=== PATIENT | male | born 1970 | race Caucasian/White ===

== ENCOUNTER 2020-03-08 10:09 | Inpatient (IN) | payer OTHER ==
--- NOTE | 2020-03-08 10:57 | BHS.RME ---
Substance Use & Tx History - Substance Use History Alcohol Substance amount: 1 pint vodka Frequency of use: Daily Substance route: Oral Date of Last Use: 03/07/20 (12pm) Nicotine Substance amount: 5 ciggs Frequency of use: Daily Substance route: Smoking Date of Last Use: 03/08/20 Physical/Psych/Mental Status - Behavior General Behavior: Increased activity (restlessness, agitation) Eye Contact: Normal - Cooperativeness Cooperativeness: Cooperative - Thinking Thought Processes: Tight, Logical, Goal Directed - Physical Health Problems Is patient presently having any pain?: No Does patient presently have any injuries (include location): No Does patient currently have a fever: No Is patient : No CIWA Nausea/Vomitin-No Nausea/No Vomiting Muscle Tremors: 3 Anxiety: 3 Agitation: 3 Paroxysmal Sweats: 4-Forehead w/Sweat Beads Orientation: 1-Uncertain about Date Tacttile Disturbances: 0-None Auditory Disturbances: 0-None Visual Disturbances: 1-Very Mild Sensitivity Headache: 1-Very Mild CIWA-Ar Total Score: 16
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
[2020-03-08] MEDS ORDERED: NICOTINE POLACRILEX 2 MG GUM BUC PRN (12:12)
[2020-03-08] MEDS ORDERED: MENTHOL/PHENOL 1 EACH UD MM PRN (12:12)
[2020-03-08] MEDS ORDERED: MAG HYDROX/AL HYDROX/SIMETH 30 ML UNIT-DOSE CUP PO PRN (12:12)
[2020-03-08] MEDS ORDERED: ACETAMINOPHEN 325 MG TABLET (FP) PO PRN ×2 (12:12)
[2020-03-08] MEDS ORDERED: BISMUTH SUBSALICYLATE 524 MG/30 ML UD PO PRN (12:12)
[2020-03-08] MEDS ORDERED: IBUPROFEN 400 MG TABLET (FP) PO PRN (12:12)
[2020-03-08] MEDS ORDERED: METHOCARBAMOL 500 MG TABLET PO PRN (12:12)
[2020-03-08] MEDS ORDERED: MAGNESIUM CITRATE 300 ML BOTTLE PO PRN (12:12)
[2020-03-08] MEDS ORDERED: MAGNESIUM HYDROX 2400MG/30ML ORAL SUSPENSION 30 ML CUP PO PRN (12:12)
[2020-03-08] MEDS ORDERED: chlordiazePOXIDE HCL 25 MG CAPSULE PO PRN (12:12)
[2020-03-08 12:41] VITALS: BMI 31.8
[2020-03-08] MEDS ORDERED: ONDANSETRON *ODT* 4 MG TABLET SL ONE (13:00)
[2020-03-08] MEDS ORDERED: TUBERCULIN PPD 5 TU/0.1ML VIAL ID ONE (13:35)
[2020-03-08] MEDS: chlordiazePOXIDE HCL 25 MG CAPSULE PO SCH ×3 (13:52→22:12)
[2020-03-08] MEDS: NICOTINE 7 MG/24 HOURS TOPICAL PATCH TD SCH (13:52)
[2020-03-08] MEDS: PRENATAL VITAMINS W/ FOLIC ACID TABLET (FP) PO SCH (13:53)
[2020-03-08] MEDS ORDERED: hydrOXYzine PAMOATE 25 MG CAPSULE (FP) PO SCH (14:00)
[2020-03-08 14:51] LABS: HEMATOCRIT 45.6 % (35.4-49); HEMOGLOBIN 14.8 GM/dL (11.7-16.9); MCH 33.6 pg (25.7-33.7); MCHC 32.5 g/dl (32.0-35.9); MEAN CELL VOLUME 103.3 fl (80-96); MEAN PLT VOLUME 8.2 fl (7.5-11.1); PLATELET COUNT 364 K/MM3 (134-434); RBC 4.41 M/mm3 (4.00-5.60); RDW 21.7 % (11.9-15.9); WHITE BLOOD COUNT 4.6 K/mm3 (4.0-10.0)
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
[2020-03-08 15:08] LABS: ALBUMIN 3.9 g/dl (3.4-5.0); BILIRUBIN,TOTAL 0.4 mg/dL (0.2-1); BLOOD UREA NITROGEN 13.1 mg/dL (7-18); CALCIUM 9.7 mg/dL (8.5-10.1); CREATININE 1.2 mg/dL (0.55-1.3); POTASSIUM 4.4 mmol/L (3.5-5.1); TOT PROT 8.1 g/dl (6.4-8.2)
--- NOTE | 2020-03-08 15:31 | EKG ---
Test Reason : Blood Pressure : / mmHG Vent. Rate : 066 BPM Atrial Rate : 066 BPM P-R Int : 212 ms QRS Dur : 076 ms QT Int : 382 ms P-R-T Axes : 054 051 020 degrees QTc Int : 400 ms SINUS RHYTHM WITH 1ST DEGREE A-V BLOCK NONSPECIFIC ST ABNORMALITY Confirmed by NHI LÓPEZ MD ([id number]) on 03/08/2020 3:31:04 PM Referred By: Confirmed By:NHI LÓPEZ MD
[2020-03-08] MEDS: MELATONIN 5 MG TABLETS PO SCH (22:11)
[2020-03-08] MEDS: THIAMINE HCL 100 MG TABLET (FP) PO SCH (22:11)
[2020-03-08] MEDS: QUEtiapine FUMARATE 200 MG TABLET PO SCH (22:12)
[2020-03-08] MEDS: hydrOXYzine PAMOATE 50 MG CAPSULE (FP) PO PRN (22:12)
[2020-03-09] MEDS ORDERED: METHADONE HCL 5 MG TABLET ONE (05:42)
[2020-03-09] MEDS ORDERED: METHADONE HCL 40 MG DISPERSABLE TABLET ONE (05:42)
[2020-03-09] MEDS ORDERED: METHADONE HCL 10 MG TABLET ONE (05:42)
[2020-03-09] MEDS ORDERED: METHADONE HCL 10 MG TABLET PO SCH (06:00)
[2020-03-09] MEDS: METHADONE 40 MG, METHADONE 10 MG, METHADONE 5 MG PO SCH (06:07)
[2020-03-09] MEDS: chlordiazePOXIDE HCL 25 MG CAPSULE PO SCH ×4 (06:07→22:18)
[2020-03-09] MEDS: PRENATAL VITAMINS W/ FOLIC ACID TABLET (FP) PO SCH (11:07)
[2020-03-09] MEDS: NICOTINE 7 MG/24 HOURS TOPICAL PATCH TD SCH (11:08)
--- NOTE | 2020-03-09 11:08 | PN ---
[facility] CIWA - CIWA Score Nausea/Vomitin-No Nausea/No Vomiting Muscle Tremors: 2 Anxiety: 3 Agitation: 1-Slight > Activity Paroxysmal Sweats: 2 Orientation: 0-Oriented Tacttile Disturbances: 0-None Auditory Disturbances: 2-Mild Harshness/Frighten Visual Disturbances: 2-Mild Sensitivity Headache: 0-None Present CIWA-Ar Total Score: 12 BHS Progress Note (SOAP) Subjective: Complaints of fatigue, irritability, anxiety, tremors and light sensitivity. Objective: 03/09/20 11:07 Vital Signs 03/09/20 07:00 Temperature 97.1 F L Pulse Rate 76 Respiratory 18 Rate Blood Pressure 115/78 O2 Sat by Pulse 96 Oximetry (%) Laboratory Last Values WBC 4.6 K/mm3 (4.0-10.0) 03/08/20 12:00 RBC 4.41 M/mm3 (4.00-5.60) 03/08/20 12:00 Hgb 14.8 GM/dL (11.7-16.9) 03/08/20 12:00 Hct 45.6 % (35.4-49) D 03/08/20 12:00 MCV 103.3 fl (80-96) H 03/08/20 12:00 MCH 33.6 pg (25.7-33.7) D 03/08/20 12:00 MCHC 32.5 g/dl (32.0-35.9) 03/08/20 12:00 RDW 21.7 % (11.9-15.9) H 03/08/20 12:00 Plt Count 364 K/MM3 (134-434) D 03/08/20 12:00 MPV 8.2 fl (7.5-11.1) 03/08/20 12:00 Sodium 135 mmol/L (136-145) L 03/08/20 12:00 Potassium 4.4 mmol/L (3.5-5.1) 03/08/20 12:00 Chloride 102 mmol/L (98-107) 03/08/20 12:00 Carbon Dioxide 24 mmol/L (21-32) 03/08/20 12:00 Anion Gap 9 MMOL/L (8-16) 03/08/20 12:00 BUN 13.1 mg/dL (7-18) 03/08/20 12:00 Creatinine 1.2 mg/dL (0.55-1.3) 03/08/20 12:00 Est GFR (CKD-EPI)AfAm 81.23 03/08/20 12:00 Est GFR (CKD-EPI)NonAf 70.09 03/08/20 12:00 Random Glucose 127 mg/dL (74-106) H 03/08/20 12:00 Calcium 9.7 mg/dL (8.5-10.1) 03/08/20 12:00 Total Bilirubin 0.4 mg/dL (0.2-1) 03/08/20 12:00 AST 42 U/L (15-37) H 03/08/20 12:00 ALT 51 U/L (13-61) 03/08/20 12:00 Alkaline Phosphatase 86 U/L (45-117) 03/08/20 12:00 Total Protein 8.1 g/dl (6.4-8.2) 03/08/20 12:00 Albumin 3.9 g/dl (3.4-5.0) 03/08/20 12:00 Syphilis Serology Non-reactive (NONREACTIVE) 03/08/20 12:00 Labs noted. Assessment: 03/09/20 11:08 Alert and oriented x3, in no acute respiratory distress. Full ROM, ambulatory without assistance. Skin warm to touch. Withdrawal symptoms. Plan: Continue detox protocol.
[2020-03-09] MEDS: MELATONIN 5 MG TABLETS PO SCH (22:16)
[2020-03-09] MEDS: QUEtiapine FUMARATE 200 MG TABLET PO SCH (22:16)
[2020-03-09] MEDS: hydrOXYzine PAMOATE 50 MG CAPSULE (FP) PO PRN (22:18)
[2020-03-09] MEDS: THIAMINE HCL 100 MG TABLET (FP) PO SCH (22:18)
[2020-03-10] MEDS ORDERED: METHADONE HCL 5 MG TABLET ONE (03:53)
[2020-03-10] MEDS ORDERED: METHADONE HCL 40 MG DISPERSABLE TABLET ONE (03:54)
[2020-03-10] MEDS ORDERED: METHADONE HCL 10 MG TABLET ONE (03:54)
[2020-03-10] MEDS: chlordiazePOXIDE HCL 25 MG CAPSULE PO SCH ×4 (05:46→22:11)
[2020-03-10] MEDS: METHADONE 40 MG, METHADONE 10 MG, METHADONE 5 MG PO SCH (05:46)
[2020-03-10] MEDS: NICOTINE 7 MG/24 HOURS TOPICAL PATCH TD SCH (10:55)
[2020-03-10] MEDS: PRENATAL VITAMINS W/ FOLIC ACID TABLET (FP) PO SCH (10:55)
--- NOTE | 2020-03-10 11:23 | PN ---
S CIWA - CIWA Score Nausea/Vomitin-No Nausea/No Vomiting Muscle Tremors: 2 Anxiety: 3 Agitation: 1-Slight > Activity Paroxysmal Sweats: No Perspiration Orientation: 0-Oriented Tacttile Disturbances: 1-Very Mild Itch/Numbness Auditory Disturbances: 0-None Visual Disturbances: 2-Mild Sensitivity Headache: 0-None Present CIWA-Ar Total Score: 9 BHS Progress Note (SOAP) Subjective: 49 years old male admitted on 03/08/20 for alcohol and benzo withdrawal sx management treating with librium detox regimen received methadone 55 mg today feeling ok resting in bed discussing aftercare with staff that mr rodriguez prefers returning to methadone maintenance program for behavior and psychosocial therapies mr rodriguez received 80 xanax 1 mg on 02/15/20 discussing risks of benzo mixed with opiate based medication Objective: 03/10/20 11:24 Vital Signs - 24 hr 03/09/20 03/09/20 03/09/20 13:30 16:58 20:30 Temperature 97 F L 97.8 F 97.1 F L Pulse Rate 74 68 71 Respiratory 20 18 20 Rate Blood Pressure 117/69 100/64 110/70 O2 Sat by Pulse 96 95 Oximetry (%) 03/10/20 03/10/20 06:31 10:08 Temperature 97.5 F L 98.2 F Pulse Rate 90 67 Respiratory 18 16 Rate Blood Pressure 87/67 L 99/62 O2 Sat by Pulse 95 Oximetry (%) Laboratory Tests 03/08/20 03/08/20 03/08/20 12:00 12:00 12:00 WBC 4.6 RBC 4.41 Hgb 14.8 Hct 45.6 D MCV 103.3 H MCH 33.6 D MCHC 32.5 RDW 21.7 H Plt Count 364 D MPV 8.2 Sodium 135 L Potassium 4.4 Chloride 102 Carbon Dioxide 24 Anion Gap 9 BUN 13.1 Creatinine 1.2 Est GFR (CKD-EPI)AfAm 81.23 Est GFR (CKD-EPI)NonAf 70.09 Random Glucose 127 H Calcium 9.7 Total Bilirubin 0.4 AST 42 H ALT 51 Alkaline Phosphatase 86 Total Protein 8.1 Albumin 3.9 Syphilis Serology Non-reactive COVID-19 (ISAAC) 03/08/20 12:00 WBC RBC Hgb Hct MCV MCH MCHC RDW Plt Count MPV Sodium Potassium Chloride Carbon Dioxide Anion Gap BUN Creatinine Est GFR (CKD-EPI)AfAm Est GFR (CKD-EPI)NonAf Random Glucose Calcium Total Bilirubin AST ALT Alkaline Phosphatase Total Protein Albumin Syphilis Serology COVID-19 (ISAAC) Not detected lab noted 03/10/20 11:27 Assessment: 03/10/20 11:28 alcohol and benzo withdrawal Plan: librium regiment
[2020-03-10] MEDS: THIAMINE HCL 100 MG TABLET (FP) PO SCH (22:11)
[2020-03-10] MEDS: MELATONIN 5 MG TABLETS PO SCH (22:11)
[2020-03-10] MEDS: QUEtiapine FUMARATE 200 MG TABLET PO SCH (22:11)
[2020-03-11] MEDS ORDERED: chlordiazePOXIDE HCL 10 MG CAPSULE PO PRN
[2020-03-11] MEDS ORDERED: METHADONE HCL 40 MG DISPERSABLE TABLET ONE (04:22)
[2020-03-11] MEDS ORDERED: METHADONE HCL 10 MG TABLET ONE (04:22)
[2020-03-11] MEDS ORDERED: METHADONE HCL 5 MG TABLET ONE (04:22)
[2020-03-11] MEDS: chlordiazePOXIDE HCL 10 MG CAPSULE PO SCH ×4 (05:47→22:12)
[2020-03-11] MEDS: METHADONE 40 MG, METHADONE 10 MG, METHADONE 5 MG PO SCH (05:47)
[2020-03-11] MEDS: PRENATAL VITAMINS W/ FOLIC ACID TABLET (FP) PO SCH (10:59)
[2020-03-11] MEDS: hydrOXYzine PAMOATE 50 MG CAPSULE (FP) PO PRN (11:00)
[2020-03-11] MEDS: NICOTINE 7 MG/24 HOURS TOPICAL PATCH TD SCH (11:01)
--- NOTE | 2020-03-11 12:17 | PN ---
S CIWA - CIWA Score Nausea/Vomitin-No Nausea/No Vomiting Muscle Tremors: 2 Anxiety: 3 Agitation: 2 Paroxysmal Sweats: No Perspiration Orientation: 0-Oriented Tacttile Disturbances: 0-None Auditory Disturbances: 0-None Visual Disturbances: 0-None Headache: 0-None Present CIWA-Ar Total Score: 7 BHS Progress Note (SOAP) Subjective: Pt reports decreasing withdrawal sx with detox medication. Reports slight anxiety Objective: 03/11/20 12:17 Vital Signs - 24 hr 03/10/20 03/10/20 03/10/20 13:26 17:08 20:21 Temperature 98.2 F 98.0 F 97.7 F Pulse Rate 78 66 73 Respiratory 18 18 18 Rate Blood Pressure 96/57 L 115/68 138/93 O2 Sat by Pulse 97 98 Oximetry (%) 03/11/20 03/11/20 03/11/20 05:43 07:08 09:25 Temperature 98.0 F 98.0 F Pulse Rate 60 62 90 Respiratory 18 18 18 Rate Blood Pressure 94/56 L 104/64 118/73 O2 Sat by Pulse 97 96 Oximetry (%) Laboratory Tests 03/08/20 03/08/20 03/08/20 12:00 12:00 12:00 WBC 4.6 RBC 4.41 Hgb 14.8 Hct 45.6 D MCV 103.3 H MCH 33.6 D MCHC 32.5 RDW 21.7 H Plt Count 364 D MPV 8.2 Sodium 135 L Potassium 4.4 Chloride 102 Carbon Dioxide 24 Anion Gap 9 BUN 13.1 Creatinine 1.2 Est GFR (CKD-EPI)AfAm 81.23 Est GFR (CKD-EPI)NonAf 70.09 Random Glucose 127 H Calcium 9.7 Total Bilirubin 0.4 AST 42 H ALT 51 Alkaline Phosphatase 86 Total Protein 8.1 Albumin 3.9 Syphilis Serology Non-reactive COVID-19 (ISAAC) 03/08/20 12:00 WBC RBC Hgb Hct MCV MCH MCHC RDW Plt Count MPV Sodium Potassium Chloride Carbon Dioxide Anion Gap BUN Creatinine Est GFR (CKD-EPI)AfAm Est GFR (CKD-EPI)NonAf Random Glucose Calcium Total Bilirubin AST ALT Alkaline Phosphatase Total Protein Albumin Syphilis Serology COVID-19 (ISAAC) Not detected Covid-19 result not detected Assessment: 03/11/20 12:18 withdrawal sx Plan: cont detox increase po fluids maintain safety
[2020-03-11] MEDS: MELATONIN 5 MG TABLETS PO SCH (22:12)
[2020-03-11] MEDS: QUEtiapine FUMARATE 200 MG TABLET PO SCH (22:12)
[2020-03-11] MEDS: THIAMINE HCL 100 MG TABLET (FP) PO SCH (22:12)
[2020-03-12] MEDS ORDERED: METHADONE HCL 40 MG DISPERSABLE TABLET ONE (03:25)
[2020-03-12] MEDS ORDERED: METHADONE HCL 10 MG TABLET ONE (03:25)
[2020-03-12] MEDS ORDERED: METHADONE HCL 5 MG TABLET ONE (03:25)
[2020-03-12] MEDS ORDERED: chlordiazePOXIDE HCL 10 MG CAPSULE PO SCH (05:00)
[2020-03-12] MEDS: METHADONE 40 MG, METHADONE 10 MG, METHADONE 5 MG PO SCH (06:13)
[2020-03-12] MEDS: NICOTINE 7 MG/24 HOURS TOPICAL PATCH TD SCH (09:26)
[2020-03-12] MEDS: PRENATAL VITAMINS W/ FOLIC ACID TABLET (FP) PO SCH (09:26)
[2020-03-12 10:31] VITALS: BP 113/66; PULSE 94; TEMP 97.5
--- NOTE | 2020-03-12 10:42 | DS ---
[facility] Detox Discharge Summary Admission Date: 03/08/20 Discharge Date: 03/12/20 - History Present History: Alcohol Dependence, MMTP ([facility]) Additional Comments: Pt requesting early Voluntary discharge today for family reasons-Reports having surgery today and has to be there. denies any acute discomfort at this time. Denies s/h/i. Pt has medical provider Dr. Ly at [address] [place] [address] for follow up care. Pertinent Past History: Obesity PTSD Bipolar Disorder - Physical Exam Results Vital Signs: Vital Signs Temperature 97.5 F L 03/12/20 09:13 Pulse Rate 94 H 03/12/20 09:13 Respiratory Rate 18 03/12/20 09:13 Blood Pressure 113/66 03/12/20 09:13 O2 Sat by Pulse Oximetry (%) 96 03/12/20 09:13 Alert o x 3 nad oob ambulating with steady gait cardiac:s1 s2, rrr lungs:ctab abdomen:soft, +bs, nt,nd extremities:no leg edema, 2 small dry scabs on left [place]. no redness or swelling to area. Pertinent Admission Physical Exam Findings: Laboratory Tests 03/08/20 03/08/20 03/08/20 12:00 12:00 12:00 WBC 4.6 RBC 4.41 Hgb 14.8 Hct 45.6 D MCV 103.3 H MCH 33.6 D MCHC 32.5 RDW 21.7 H Plt Count 364 D MPV 8.2 Sodium 135 L Potassium 4.4 Chloride 102 Carbon Dioxide 24 Anion Gap 9 BUN 13.1 Creatinine 1.2 Est GFR (CKD-EPI)AfAm 81.23 Est GFR (CKD-EPI)NonAf 70.09 Random Glucose 127 H Calcium 9.7 Total Bilirubin 0.4 AST 42 H ALT 51 Alkaline Phosphatase 86 Total Protein 8.1 Albumin 3.9 Syphilis Serology Non-reactive COVID-19 (ISAAC) 03/08/20 12:00 WBC RBC Hgb Hct MCV MCH MCHC RDW Plt Count MPV Sodium Potassium Chloride Carbon Dioxide Anion Gap BUN Creatinine Est GFR (CKD-EPI)AfAm Est GFR (CKD-EPI)NonAf Random Glucose Calcium Total Bilirubin AST ALT Alkaline Phosphatase Total Protein Albumin Syphilis Serology COVID-19 (ISAAC) Not detected - Treatment Hospital Course: Detox Protocol Followed, Detoxed Safely, Responded well, Discharged Condition Good, Rehab Referral Accepted Patient has Accepted a Rehab Referral to: [facility] - Medication Discharge Medications: Ambulatory Orders Clonazepam [Klonopin] 1 mg PO QID 07/01/13 Methadone [Dolophine -] 55 mg PO DAILY 07/01/13 Quetiapine Fumarate [Seroquel] 200 mg PO QID 07/01/13 Alprazolam 0.5 mg PO PRN 03/08/20 - Diagnosis (1) Methadone maintenance therapy patient Status: Chronic (2) Alcohol dependence with uncomplicated withdrawal Status: Acute (3) Nicotine dependence Status: Chronic Qualifiers: Nicotine product type: cigarettes Substance use status: in withdrawal Qualified Code(s): F17.213 - Nicotine dependence, cigarettes, with withdrawal - AMA Did Patient Leave Against Medical Advice: No
[2020-03-13] MEDS ORDERED: chlordiazePOXIDE HCL 10 MG CAPSULE PO ONE (05:00)
== END 2020-03-12 09:35 | disposition home or self-care (01) | DRG 773 ==
LOC: YASAS 10:09 → Y5N DETOX 12:33
PROVIDERS: ADMIT Allergy & Immunology; ATTEND Allergy & Immunology
PROC: HZ2ZZZZ Detoxification Services for Substance Abuse Treatment (ICD-10-PCS; principal; 2020-03-08)
DX: F10.230 Alcohol dependence with withdrawal, uncomplicated (principal); F11.20 Opioid dependence, uncomplicated; F13.230 Sedative, hypnotic or anxiolytic dependence with withdrawal, uncomplicated; F17.210 Nicotine dependence, cigarettes, uncomplicated; F10.280 Alcohol dependence with alcohol-induced anxiety disorder; F10.282 Alcohol dependence with alcohol-induced sleep disorder; F31.9 Bipolar disorder, unspecified; F25.9 Schizoaffective disorder, unspecified; F43.10 Post-traumatic stress disorder, unspecified; E66.9 Obesity, unspecified; Z68.31 Body mass index [BMI] 31.0-31.9, adult; Z56.0 Unemployment, unspecified
CPT/HCPCS: 36415; 80053; 85027; 86780; 93005; 93010; Q0162; U0003